=== PATIENT | female | born 1985 | race Caucasian/White ===

== ENCOUNTER 2019-06-29 22:08 | Emergency (ER) | payer BC ==
[~2019-06-29] VITALS: Ht 170.1 cm; Wt 86.2 kg
[~2019-06-29 22:08] MED LIST: ZYRTEC10 M1 PO
== END 2019-06-30 00:14 | disposition home or self-care (01) ==
LOC: ED 22:08
DX: S01.91XA Laceration without foreign body of unspecified part of head, initial encounter (principal); Z88.5 Allergy status to narcotic agent; Z79.899 Other long term (current) drug therapy; W22.8XXA Striking against or struck by other objects, initial encounter; Y93.89 Activity, other specified; Y92.89 Other specified places as the place of occurrence of the external cause; Y99.8 Other external cause status

== ENCOUNTER → 2020-05-15 | Outpatient (CLI) | payer BC | END | disposition home or self-care (01) | LOC: COVID19 12:11 | PROVIDERS: ATTEND Family Medicine | DX: U07.1 COVID-19 (principal) ==

== ENCOUNTER 2023-02-04 23:59 | Emergency (ER) | payer SELFPAY ==
[~2023-02-04] VITALS: Ht 167.6 cm; Wt 77.1 kg
[2023-02-05] VITALS (11 sets, daily range): BP systolic 90–141; BP diastolic 48–76
[2023-02-05 00:34] LABS: HEMATOCRIT 37.2 % (37.0-47.0); MEAN CORPUSCULAR HGB CONC 32.3 g/dl (33.0-37.0); MEAN PLATELET VOLUME 9.6 fl (9.6-12.3); PLATELET COUNT AUTOMATED 281 10*3/uL (130-400); WHITE BLOOD COUNT 9.9 10*3/uL (4.8-10.8)
[2023-02-05 00:35] LABS: MANUAL DIFF REFLEX YES
[2023-02-05 00:45] LABS: ACT PARTIAL THROMBO TIME 34.2 SECONDS (20.0-32.1); INTERNATIONAL NORM RATIO 1.1 (2.0-3.5)
[2023-02-05 00:47] LABS: ABG BASE EXCESS -15.2 mmol/L (-2.0-2.0); ARTERIAL BLOOD GAS PH 7.294 (7.35-7.45)
[2023-02-05 01:05] LABS: POTASSIUM 4.6 mmol/L (3.4-5.1); TOTAL PROTEIN 6.3 gm/dL (6.0-8.0)
[2023-02-05 01:13] LABS: ATYPICAL LYMPHS 1 % (0-0); PLATELET SUFFICIENCY NORMAL (NORMAL); TOTAL CELLS COUNTED 100 #CELLS
[2023-02-05 03:31] LABS: ARTERIAL BLOOD GAS PH 7.368 (7.35-7.45)
[2023-02-05 03:32] LABS: ABG BASE EXCESS -10.2 mmol/L (-2.0-2.0)
== END 2023-02-05 12:35 | disposition short-term general hospital (02) ==
LOC: ED 23:59 → EDHOLD 02-05 07:43 → ICCU 02-05 08:23 → ED 02-05 12:35
PROVIDERS: Internal Medicine
DX: R65.20 Severe sepsis without septic shock (principal); J96.90 Respiratory failure, unspecified, unspecified whether with hypoxia or hypercapnia; K81.0 Acute cholecystitis; E87.1 Hypo-osmolality and hyponatremia; J18.9 Pneumonia, unspecified organism; J96.00 Acute respiratory failure, unspecified whether with hypoxia or hypercapnia; Z88.5 Allergy status to narcotic agent; Z91.040 Latex allergy status; Z98.890 Other specified postprocedural states; Z20.822 Contact with and (suspected) exposure to COVID-19

== ENCOUNTER 2023-05-30 16:00 | Inpatient (IN) | payer BC ==
[~2023-05-30] VITALS: Ht 162.5 cm
[2023-05-30] VITALS (12 sets, daily range): BP systolic 74–114; BP diastolic 30–81
[2023-05-30] MEDS ORDERED: SODIUM CHLORIDE 0.9% 1,000 ML IV ONE ×2 (16:05)
[2023-05-30 16:31] LABS: MANUAL DIFF REFLEX YES; MEAN CORPUSCULAR HGB 25.9 pg (27.0-31.0); MEAN CORPUSCULAR HGB CONC 27.3 g/dl (33.0-37.0); MEAN PLATELET VOLUME 10.8 fl (9.6-12.3); PLATELET COUNT AUTOMATED 504 10*3/uL (130-400); RED BLOOD COUNT 4.63 10*6/uL (4.10-5.10); WHITE BLOOD COUNT 16.8 10*3/uL (4.8-10.8)
[2023-05-30 16:36] LABS: ABG BASE EXCESS -31.1 mmol/L (-2.0-2.0); ARTERIAL BLOOD GAS PH 6.796 (7.35-7.45)
[2023-05-30] MEDS ORDERED: SODIUM BICARBONATE 50 MEQ/50 ML VIAL IV ONE ×3 (16:40→19:15)
[2023-05-30] MEDS ORDERED: INSULIN REGULAR, HUMAN 1 UNIT/0.01 ML IV ONE (16:45)
[2023-05-30] MEDS ORDERED: INSULIN REGULAR IN 0.9 % NACL 100 ML IV SCH ×2 (16:45→18:40)
[2023-05-30 16:51] LABS: BASOPHILS 1 % (0-1); PLATELET SUFFICIENCY HIGH (NORMAL); TOTAL CELLS COUNTED 100 #CELLS
[2023-05-30 16:52] LABS: STOMATOCYTE FEW
[2023-05-30 16:53] LABS: ACANTHOCYTES FEW; POLYCHROMASIA SLIGHT
[2023-05-30] MEDS ORDERED: Piperacillin Sodium/Tazobact 50 ML IV ONE (17:55)
[2023-05-30 18:03] LABS: ALKALINE PHOSPHATASE 283 U/L (46-116); BUN 17 mg/dl (9-23); CHLORIDE 98 mmol/L (98-107); LIPASE 108 U/L (12-53); POTASSIUM 5.9 mmol/L (3.4-5.1); SGPT/ALT 101 U/L (5-49); TOTAL PROTEIN 5.9 gm/dL (6.0-8.0)
[2023-05-30] MEDS ORDERED: SODIUM CHLORIDE 0.9% 1,000 ML IV SCH ×2 (18:15→21:00)
[2023-05-30] MEDS ORDERED: ACETAMINOPHEN 325 MG TAB PO PRN (18:40)
[2023-05-30] MEDS ORDERED: Dicyclomine Hydrochloride 20 MG TAB PO PRN (18:40)
[2023-05-30] MEDS ORDERED: ACETAMINOPHEN 650 MG SUPP R PRN (18:40)
[2023-05-30] MEDS ORDERED: METHOCARBAMOL 750 MG TAB PO PRN (18:40)
[2023-05-30] MEDS ORDERED: TEMAZEPAM 15 MG CAP PO PRN (18:40)
[2023-05-30] MEDS ORDERED: BISACODYL 10 MG SUPP R PRN (18:40)
[2023-05-30] MEDS ORDERED: BISACODYL 5 MG TAB PO PRN (18:40)
[2023-05-30] MEDS ORDERED: Magnesium Hydroxide 30 ML UDC PO PRN (18:40)
[2023-05-30] MEDS ORDERED: Ondansetron Hydrochloride 4 MG/2 ML VIAL IV PRN (18:40)
[2023-05-30] MEDS ORDERED: SODIUM CHLORIDE 0.45% 1,000 ML IV SCH (18:50)
[2023-05-30] MEDS ORDERED: HEPARIN SODIUM 250 ML IV SCH (19:00)
[2023-05-30] MEDS ORDERED: MULTIVITAMIN CONCENTRATE (IV) 10 ML,Thiamine 100 MG,FOLIC ACID 1 MG in SODIUM CHLORIDE ... IV ONE (19:00)
[2023-05-30] MEDS ORDERED: POTASSIUM CHLORIDE IN WATER 100 ML IV SCH (19:00)
[2023-05-30] MEDS ORDERED: ASPIRIN 325 MG TAB PO ONE (19:00)
[2023-05-30 19:06] LABS: BILIRUBIN Negative (Negative); BLOOD Negative (Negative); CLARITY Clear (Clear); COLOR Yellow (Yellow); GLUCOSE 3+ (Negative); KETONE 1+ (Negative); LEUKO ESTERASE Negative (Negative); NITRITE Negative (Negative); SPECIFIC GRAVITY 1.025 (1.001-1.030)
[2023-05-30] MEDS ORDERED: DIAZEPAM 10 MG/2 ML SYR IV ONE (19:10)
[2023-05-30] MEDS ORDERED: NOREPINEPHRINE BITARTRATE/D5W 250 ML IV SCH (19:10)
[2023-05-30 19:18] LABS: BACTERIA TRACE; HYALINE CAST 21-30; RBC 0-2 rbc/hpf (0-2)
[2023-05-30] MEDS ORDERED: LORazepam 1 MG TAB PO SCH (20:00)
[2023-05-30] MEDS ORDERED: SYNTHROID,LEV125 MCG PO (21:06)
[2023-05-30] MEDS ORDERED: HUMALOG100 UNIT/1 SC (21:07)
[2023-05-30 21:33] LABS: POTASSIUM 4.1 mmol/L (3.4-5.1)
[2023-05-30] MEDS ORDERED: ATORVASTATIN CALCIUM 40 MG TABLET PO SCH (22:00)
[2023-05-30] MEDS ORDERED: AZITHROMYCIN 250 ML IV SCH (23:00)
[2023-05-31] VITALS (70 sets, daily range): BP systolic 88–133; BP diastolic 37–84
[2023-05-31] MEDS ORDERED: Ceftriaxone Sodium 2 GM in SYRINGE INFUSION 20 ML IV SCH
[2023-05-31 01:27] LABS: POTASSIUM 4.1 mmol/L (3.4-5.1)
[2023-05-31] MEDS ORDERED: DEXTROSE 5% SALINE 0.45% 1,000 ML IV SCH (02:05)
[2023-05-31 04:38] LABS: BASO % 0.2 % (0.0-1.0); EOS % 0.2 % (1.0-4.0); HEMATOCRIT 33.3 % (37.0-47.0); LYMPH # 1.5 10*3/uL (1.3-4.4); LYMPH % 13.1 % (27.0-41.0); MEAN CORPUSCULAR HGB 26.1 pg (27.0-31.0); MEAN CORPUSCULAR HGB CONC 31.2 g/dl (33.0-37.0); MEAN PLATELET VOLUME 9.5 fl (9.6-12.3); MONO # 0.5 10*3/uL (0.1-1.0); MONO % 4.5 % (3.0-9.0); NEUT # 9.2 10*3/uL (2.3-7.9); NEUT % 81.1 % (47.0-73.0); RED BLOOD COUNT 3.99 10*6/uL (4.10-5.10); RED CELL DISTRI WIDTH 21.6 % (0-14.5); WHITE BLOOD COUNT 11.4 10*3/uL (4.8-10.8)
[2023-05-31 04:46] LABS: MEAN CELL VOLUME 83.5 fl (81.0-99.0); PLATELET COUNT AUTOMATED 282 10*3/uL (130-400)
[2023-05-31 05:04] LABS: FREE T4 0.92 ng/dl (0.89-1.76); POTASSIUM 4.3 mmol/L (3.4-5.1); TOTAL PROTEIN 5.9 gm/dL (6.0-8.0)
[2023-05-31 05:39] LABS: VITAMIN D, 25-HYDROXY 22.3 ng/mL (30-100)
[2023-05-31] MEDS ORDERED: IOHEXOL 300 MG/ML 100 ML VIAL IV ONE (08:35)
[2023-05-31] MEDS ORDERED: SODIUM CHLORIDE 0.9% 50 ML BAG IV ONE (09:07)
[2023-05-31] MEDS ORDERED: Enoxaparin Sodium 30 MG/0.3 ML SYR SC SCH (10:00)
[2023-05-31] MEDS ORDERED: ASPIRIN ENTERIC COATED 81 MG TAB PO SCH (10:00)
[2023-05-31] MEDS ORDERED: Insulin Glargine, Recombinan 1 UNIT/0.01 ML SC ONE (10:00)
[2023-05-31] MEDS ORDERED: DEXTROSE 10 % IN WATER 250 ML IV PRN (11:40)
[2023-05-31 12:00] LABS: POTASSIUM 3.7 mmol/L (3.4-5.1)
[2023-05-31] MEDS ORDERED: SODIUM CHLORIDE 0.9% 1,000 ML IV SCH (12:30)
[2023-05-31] MEDS ORDERED: Ketorolac Tromethamine 15 MG/ML VIAL IV ONE (12:40)
[2023-05-31] MEDS ORDERED: METOPROLOL SUCCINATE XR 25 MG TAB PO SCH (13:35)
[2023-05-31] MEDS ORDERED: INSULIN LISPRO 1 UNIT/0.01 ML SQ SCH (16:30)
[2023-05-31] MEDS ORDERED: DEXMEDETOMIDINE IN 0.9 % NACL 100 ML IV SCH (20:30)
[2023-05-31] MEDS ORDERED: LORazepam 1 MG TAB PO SCH (22:00)
[2023-06-01] VITALS (20 sets, daily range): BP systolic 82–154; BP diastolic 44–93
[2023-06-01] MEDS ORDERED: LORazepam 1 MG TAB PO PRN
[2023-06-01] MEDS ORDERED: DIAZEPAM 10 MG/2 ML SYR IV PRN ×2 (00:35→15:46)
[2023-06-01 06:15] LABS: BASO % 0.3 % (0.0-1.0); EOS # 0.1 10*3/uL (0.0-0.4); EOS % 0.9 % (1.0-4.0); HEMATOCRIT 33.8 % (37.0-47.0); LYMPH # 1.9 10*3/uL (1.3-4.4); LYMPH % 24.5 % (27.0-41.0); MEAN CELL VOLUME 85.4 fl (81.0-99.0); MEAN CORPUSCULAR HGB 25.8 pg (27.0-31.0); MEAN CORPUSCULAR HGB CONC 30.2 g/dl (33.0-37.0); MONO # 0.4 10*3/uL (0.1-1.0); NEUT # 5.4 10*3/uL (2.3-7.9); NEUT % 68.7 % (47.0-73.0); NUCLEATED RED BLOOD CELL 0.3 % (0.0-0.0); PLATELET COUNT AUTOMATED 202 10*3/uL (130-400); RED BLOOD COUNT 3.96 10*6/uL (4.10-5.10); RED CELL DISTRI WIDTH 23.2 % (0-14.5); WHITE BLOOD COUNT 7.9 10*3/uL (4.8-10.8)
[2023-06-01 06:16] LABS: ALKALINE PHOSPHATASE 257 U/L (46-116); BUN 21 mg/dl (9-23); CHLORIDE 96 mmol/L (98-107); POTASSIUM 4.6 mmol/L (3.4-5.1); SGPT/ALT 110 U/L (5-49)
[2023-06-01] MEDS ORDERED: SODIUM CHLORIDE 0.9% 1,000 ML IV ONE (09:50)
[2023-06-01] MEDS ORDERED: DEXTROSE 5% SALINE 0.9% 1,000 ML IV SCH (12:35)
[2023-06-01 12:52] LABS: BUN 16 mg/dl (9-23); CHLORIDE 103 mmol/L (98-107)
[2023-06-01 13:00] LABS: POTASSIUM 3.5 mmol/L (3.4-5.1)
[2023-06-01 19:04] LABS: BUN 12 mg/dl (9-23); CHLORIDE 104 mmol/L (98-107); POTASSIUM 3.5 mmol/L (3.4-5.1)
[2023-06-02] VITALS (10 sets, daily range): BP systolic 104–185; BP diastolic 69–99
[2023-06-02 06:10] LABS: BUN 10 mg/dl (9-23); CHLORIDE 108 mmol/L (98-107); POTASSIUM 3.2 mmol/L (3.4-5.1)
[2023-06-02 06:11] LABS: BASO % 0.9 % (0.0-1.0); EOS # 0.2 10*3/uL (0.0-0.4); EOS % 3.5 % (1.0-4.0); HEMATOCRIT 33.5 % (37.0-47.0); LYMPH # 2.4 10*3/uL (1.3-4.4); LYMPH % 55.1 % (27.0-41.0); MEAN CORPUSCULAR HGB 25.7 pg (27.0-31.0); MEAN CORPUSCULAR HGB CONC 29.6 g/dl (33.0-37.0); MEAN PLATELET VOLUME 9.9 fl (9.6-12.3); MONO # 0.2 10*3/uL (0.1-1.0); MONO % 4.4 % (3.0-9.0); NEUT # 1.6 10*3/uL (2.3-7.9); NEUT % 35.9 % (47.0-73.0); PLATELET COUNT AUTOMATED 155 10*3/uL (130-400); RED BLOOD COUNT 3.85 10*6/uL (4.10-5.10); RED CELL DISTRI WIDTH 22.8 % (0-14.5); WHITE BLOOD COUNT 4.3 10*3/uL (4.8-10.8)
[2023-06-02] MEDS ORDERED: POTASSIUM CHLORIDE IN WATER 100 ML IV SCH (10:00)
[2023-06-02 13:06] LABS: BUN 7 mg/dl (9-23); CHLORIDE 107 mmol/L (98-107); POTASSIUM 3.9 mmol/L (3.4-5.1)
[2023-06-02] MEDS ORDERED: Enoxaparin Sodium 40 MG/0.4 ML SYR SC SCH (13:40)
[2023-06-02] MEDS ORDERED: DEXMEDETOMIDINE HCL 1,000 MCG in SODIUM CHLORIDE 0.9% 240 ML IV SCH (14:00)
[2023-06-02] MEDS ORDERED: DIAZEPAM 10 MG/2 ML SYR IV PRN (15:56)
[2023-06-02 18:53] LABS: BUN 9 mg/dl (9-23); CHLORIDE 106 mmol/L (98-107)
[2023-06-02] MEDS ORDERED: AMMONIUM LACTATE 12% LOTION T SCH (22:00)
[2023-06-03] VITALS (10 sets, daily range): BP systolic 99–171; BP diastolic 59–93
[2023-06-03 06:04] LABS: BASO % 0.8 % (0.0-1.0); EOS # 0.2 10*3/uL (0.0-0.4); EOS % 3.7 % (1.0-4.0); HEMATOCRIT 35.5 % (37.0-47.0); LYMPH # 1.9 10*3/uL (1.3-4.4); LYMPH % 37.3 % (27.0-41.0); MEAN CORPUSCULAR HGB CONC 31.8 g/dl (33.0-37.0); MEAN PLATELET VOLUME 9.9 fl (9.6-12.3); MONO # 0.3 10*3/uL (0.1-1.0); MONO % 6.4 % (3.0-9.0); NEUT # 2.7 10*3/uL (2.3-7.9); NEUT % 51.6 % (47.0-73.0); PLATELET COUNT AUTOMATED 163 10*3/uL (130-400); RED BLOOD COUNT 4.35 10*6/uL (4.10-5.10); RED CELL DISTRI WIDTH 23.1 % (0-14.5); WHITE BLOOD COUNT 5.2 10*3/uL (4.8-10.8)
[2023-06-03 06:12] LABS: CHLORIDE 103 mmol/L (98-107)
[2023-06-03 06:18] LABS: BUN < 5 mg/dl (9-23); POTASSIUM 2.9 mmol/L (3.4-5.1)
[2023-06-03 06:45] LABS: MEAN CELL VOLUME 81.6 fl (81.0-99.0)
[2023-06-03] MEDS ORDERED: POTASSIUM CHLORIDE IN WATER 100 ML IV SCH (07:00)
[2023-06-03] MEDS ORDERED: MAGNESIUM SULFATE 50 ML IV ONE (07:50)
[2023-06-03] MEDS ORDERED: DEXTROSE 10 % IN WATER 250 ML IV PRN (09:35)
[2023-06-03] MEDS ORDERED: Insulin Glargine, Recombinan 1 UNIT/0.01 ML SC SCH (10:00)
[2023-06-03] MEDS ORDERED: INSULIN LISPRO 1 UNIT/0.01 ML SQ SCH (11:30)
[2023-06-03 12:29] LABS: CHLORIDE 101 mmol/L (98-107); POTASSIUM 3.6 mmol/L (3.4-5.1)
[2023-06-03 12:31] LABS: BUN < 5 mg/dl (9-23)
[2023-06-04] VITALS (12 sets, daily range): BP systolic 114–165; BP diastolic 71–99
[2023-06-04] MEDS ORDERED: ZALEPLON5 MG PO (05:42)
[2023-06-04] MEDS ORDERED: Levothyroxine Sodium 125 MCG TAB PO SCH ×2 (06:00→10:00)
[2023-06-04 06:06] LABS: CHLORIDE 105 mmol/L (98-107); POTASSIUM 3.9 mmol/L (3.4-5.1)
[2023-06-04 06:12] LABS: BUN < 5 mg/dl (9-23)
[2023-06-04 06:17] LABS: BASO % 0.9 % (0.0-1.0); EOS # 0.3 10*3/uL (0.0-0.4); EOS % 5.6 % (1.0-4.0); HEMATOCRIT 35.8 % (37.0-47.0); LYMPH # 1.8 10*3/uL (1.3-4.4); LYMPH % 40.7 % (27.0-41.0); MEAN CELL VOLUME 84.6 fl (81.0-99.0); MEAN CORPUSCULAR HGB 25.8 pg (27.0-31.0); MEAN CORPUSCULAR HGB CONC 30.4 g/dl (33.0-37.0); MEAN PLATELET VOLUME 10.3 fl (9.6-12.3); MONO # 0.5 10*3/uL (0.1-1.0); MONO % 11.8 % (3.0-9.0); NEUT # 1.8 10*3/uL (2.3-7.9); NEUT % 40.6 % (47.0-73.0); PLATELET COUNT AUTOMATED 177 10*3/uL (130-400); RED BLOOD COUNT 4.23 10*6/uL (4.10-5.10); WHITE BLOOD COUNT 4.5 10*3/uL (4.8-10.8)
[2023-06-04] MEDS ORDERED: Technetium Tc 99M Tetrofosmi 0.23 MG KIT IJ SCH (13:05)
[2023-06-04] MEDS ORDERED: DIAZEPAM 10 MG/2 ML SYR IV ONE (23:55)
[2023-06-05] VITALS: BP 134/77
[2023-06-05 04:00] VITALS: BP 144/77
[2023-06-05 05:59] LABS: BASO # 0.1 10*3/uL (0.0-0.1); BASO % 1.2 % (0.0-1.0); EOS # 0.2 10*3/uL (0.0-0.4); EOS % 5.6 % (1.0-4.0); HEMATOCRIT 36.3 % (37.0-47.0); LYMPH # 1.9 10*3/uL (1.3-4.4); LYMPH % 46.6 % (27.0-41.0); MEAN CELL VOLUME 85.2 fl (81.0-99.0); MEAN CORPUSCULAR HGB 26.3 pg (27.0-31.0); MEAN CORPUSCULAR HGB CONC 30.9 g/dl (33.0-37.0); MEAN PLATELET VOLUME 10.1 fl (9.6-12.3); MONO # 0.5 10*3/uL (0.1-1.0); MONO % 12.6 % (3.0-9.0); NEUT # 1.4 10*3/uL (2.3-7.9); NEUT % 32.8 % (47.0-73.0); PLATELET COUNT AUTOMATED 222 10*3/uL (130-400); RED BLOOD COUNT 4.26 10*6/uL (4.10-5.10); RED CELL DISTRI WIDTH 24.1 % (0-14.5); WHITE BLOOD COUNT 4.1 10*3/uL (4.8-10.8)
[2023-06-05 06:00] VITALS: BP 127/74
[2023-06-05] MEDS ORDERED: Regadenoson 0.4 MG/5 ML SYR IV ONE (06:41)
[2023-06-05 06:59] LABS: BUN 6 mg/dl (9-23); CHLORIDE 105 mmol/L (98-107); POTASSIUM 3.3 mmol/L (3.4-5.1)
[2023-06-05] MEDS ORDERED: POTASSIUM CHLORIDE 20 MEQ TAB PO ONE ×2 (07:25→12:35)
[2023-06-05 08:00] VITALS: BP 127/73
[2023-06-05] MEDS ORDERED: Pantoprazole Sodium 20 MG TAB PO ONE (14:00)
[2023-06-05 16:00] VITALS: BP 141/87
[2023-06-05] MEDS ORDERED: TEMAZEPAM 15 MG CAP PO PRN (16:16)
[2023-06-05] MEDS ORDERED: hydrOXYzine pamoate 25 MG CAP PO ONE (19:00)
[2023-06-05 20:00] VITALS: BP 134/78
[2023-06-06] VITALS: BP 124/72
[2023-06-06] MEDS ORDERED: LORazepam 0.5 MG TAB PO ONE (01:00)
[2023-06-06 06:22] LABS: BASO # 0.1 10*3/uL (0.0-0.1); BASO % 1.5 % (0.0-1.0); EOS # 0.2 10*3/uL (0.0-0.4); EOS % 4.5 % (1.0-4.0); HEMATOCRIT 34.1 % (37.0-47.0); LYMPH # 2.1 10*3/uL (1.3-4.4); LYMPH % 38.7 % (27.0-41.0); MEAN CORPUSCULAR HGB 26.3 pg (27.0-31.0); MEAN CORPUSCULAR HGB CONC 30.2 g/dl (33.0-37.0); MEAN PLATELET VOLUME 9.8 fl (9.6-12.3); MONO # 0.9 10*3/uL (0.1-1.0); MONO % 16.2 % (3.0-9.0); NEUT # 2.1 10*3/uL (2.3-7.9); NEUT % 38.2 % (47.0-73.0); RED BLOOD COUNT 3.92 10*6/uL (4.10-5.10); WHITE BLOOD COUNT 5.4 10*3/uL (4.8-10.8)
[2023-06-06 06:23] LABS: PLATELET COUNT AUTOMATED 325 10*3/uL (130-400)
[2023-06-06 06:57] LABS: BUN 9 mg/dl (9-23); CHLORIDE 106 mmol/L (98-107)
[2023-06-06 07:04] LABS: POTASSIUM 4.6 mmol/L (3.4-5.1)
[2023-06-06 08:00] VITALS: BP 128/71
[2023-06-06] MEDS ORDERED: ATORVASTATIN CA40 M1 PO (11:32)
[2023-06-06] MEDS ORDERED: HUMALOG100 UNIT/1 SC (11:32)
[2023-06-06] MEDS ORDERED: LEVOFLOXACIN750 M2 PO (11:32)
[2023-06-06] MEDS ORDERED: HYDROXYZINE HCL25 MG PO (11:32)
[2023-06-06] MEDS ORDERED: SYNTHROID,LEV125 MCG PO (11:32)
[2023-06-06] MEDS ORDERED: METOPROLOL SUCC25 M2 PO (11:32)
[2023-06-06] MEDS ORDERED: ASPIRIN ADULT L81 M2 PO (11:32)
[2023-06-06 12:00] VITALS: BP 118/70
[2023-06-06] MEDS ORDERED: ADMELOG100 UNIT/1 SQ (12:39)
== END 2023-06-06 12:44 | disposition home or self-care (01) | DRG 871 ==
LOC: ED 16:00 → ICCU 18:29 → EDHOLD 18:29 → ICCU 20:36
PROVIDERS: Emergency Medicine; Student in an Organized Health Care Education/Training Program; ADMIT Internal Medicine; ATTEND Internal Medicine
PROC: 02HV33Z Insertion of Infusion Device into Superior Vena Cava, Percutaneous Approach (ICD-10-PCS; principal; 2023-05-30)
PROC: B548ZZA Ultrasonography of Superior Vena Cava, Guidance (ICD-10-PCS; 2023-05-30)
PROC: 4A02XM4 Measurement of Cardiac Total Activity, External Approach (ICD-10-PCS; 2023-06-05)
PROC: 3E073KZ Introduction of Other Diagnostic Substance into Coronary Artery, Percutaneous Approach (ICD-10-PCS; 2023-06-05)
DX: A41.9 Sepsis, unspecified organism (principal); E10.10 Type 1 diabetes mellitus with ketoacidosis without coma; G93.41 Metabolic encephalopathy; J18.9 Pneumonia, unspecified organism; I21.4 Non-ST elevation (NSTEMI) myocardial infarction; J96.01 Acute respiratory failure with hypoxia; E87.1 Hypo-osmolality and hyponatremia; N17.9 Acute kidney failure, unspecified; E87.5 Hyperkalemia; R65.20 Severe sepsis without septic shock; R16.0 Hepatomegaly, not elsewhere classified; K76.0 Fatty (change of) liver, not elsewhere classified; F10.20 Alcohol dependence, uncomplicated; E55.9 Vitamin D deficiency, unspecified; E03.9 Hypothyroidism, unspecified; R74.01 Elevation of levels of liver transaminase levels; E66.01 Morbid (severe) obesity due to excess calories; Z88.6 Allergy status to analgesic agent; Z68.29 Body mass index [BMI] 29.0-29.9, adult

== ENCOUNTER 2023-12-08 07:58 | Emergency (ER) | payer BC ==
[~2023-12-08] VITALS: Ht 170.1 cm; Wt 74.8 kg
[~2023-12-08 07:58] MED LIST changes: +ADMELOG100 UNIT/1 SQ; +ASPIRIN ADULT L81 M2 PO; +ATORVASTATIN CA40 M1 PO; +HUMALOG100 UNIT/1 SC; +HYDROXYZINE HCL25 MG PO; +LEVOFLOXACIN750 M2 PO; +METOPROLOL SUCC25 M2 PO; +SYNTHROID,LEV125 MCG PO; +ZALEPLON5 MG PO
[2023-12-08] MEDS ORDERED: fentaNYL CITRATE 100 MCG/2 ML VIAL IV ONE (08:35)
[2023-12-08] MEDS ORDERED: ETOMIDATE 20 MG/10 ML VIAL IV ONE (11:00)
[2023-12-08] MEDS ORDERED: TRAMADOL HCL50 MG PO (13:24)
[2023-12-11] MEDS ORDERED: CLONIDINE HCL0.1 M1 PO (14:41)
[2023-12-11] MEDS ORDERED: ZALEPLON10 MG PO (14:42)
[2023-12-11] MEDS ORDERED: XYWAV 0.50.5 GM/1 M PO (14:44)
[2023-12-11] MEDS ORDERED: HYDROXYZINE PAM50 MG PO (14:45)
[2023-12-11] MEDS ORDERED: BUSPIRONE10 MG PO (14:45)
[2023-12-11] MEDS ORDERED: OMEPRAZOLE MAGN20 MG PO (14:47)
[2023-12-11] MEDS ORDERED: CYMBALTA60 MG PO (14:47)
[2023-12-11] MEDS ORDERED: CYMBALTA30 MG PO (14:48)
[2023-12-15] MEDS ORDERED: HYDROCODONE-AC1 EAC1 PO (10:07)
[2023-12-21] MEDS ORDERED: HYDROXYZINE HCL25 MG PO (12:54)
[2023-12-21] MEDS ORDERED: MIRTAZAPINE45 MG PO (12:57)
[2023-12-21] MEDS ORDERED: KETOROLAC10 MG PO (13:06)
[2023-12-21] MEDS ORDERED: NOVOLOG10 ML SC (13:10)
[2023-12-25] MEDS ORDERED: AMOX-CLAV 875-1 EACH PO (14:05)
[2023-12-28] MEDS ORDERED: ATARAX,VISTARIL50 MG PO (01:51)
[2023-12-28] MEDS ORDERED: AMOX-CLAV 875-1 EACH PO (14:14)
== END 2023-12-08 14:41 | disposition home or self-care (01) ==
LOC: ED 07:58
DX: S52.531A Colles' fracture of right radius, initial encounter for closed fracture (principal); E11.9 Type 2 diabetes mellitus without complications; F10.20 Alcohol dependence, uncomplicated; Z88.5 Allergy status to narcotic agent; Z91.010 Allergy to peanuts; Z98.890 Other specified postprocedural states; W01.198A Fall on same level from slipping, tripping and stumbling with subsequent striking against other object, initial encounter; Y93.89 Activity, other specified; Y92.000 Kitchen of unspecified non-institutional (private) residence as the place of occurrence of the external cause; Y99.8 Other external cause status

== ENCOUNTER → 2023-12-15 | Day surgery (SDC) | payer BC ==
[~2023-12-15] VITALS: Ht 170.1 cm; Wt 74.8 kg
[~2023-12-15] MED LIST changes: +ACETAMINOPHEN 100 ML IV ONE; +AMOX-CLAV 875-1 EACH PO; +ATARAX,VISTARIL50 MG PO; +BUPIVACAINE 0.5% 10 ML VIAL ONE; +BUSPIRONE10 MG PO; +CLONIDINE HCL0.1 M1 PO; +CYMBALTA30 MG PO; +CYMBALTA60 MG PO; +HYDROCODONE-AC1 EAC1 PO; +HYDROXYZINE PAM50 MG PO; +HYDROmorphONE Hydrochloride 1 MG/ML SYR IV ONE; +HYDROmorphONE Hydrochloride 1 ML IV ONE; +KETOROLAC10 MG PO; +Ketorolac Tromethamine 30 MG/ML VIAL IV ONE; +Lactated Ringer's Solution 1,000 ML IV ONE; +Lidocaine Hydrochloride 5 ML VIAL IV ONE; +MIRTAZAPINE45 MG PO; +Midazolam Hydrochloride 2 MG/2 ML VIAL IV ONE; +NOVOLOG10 ML SC; +OMEPRAZOLE MAGN20 MG PO; +Ondansetron Hydrochloride 4 MG/2 ML VIAL IV ONE; +PROPOFOL 200 MG/20 ML VIAL IV ONE; +SEVOFLURANE 250 ML BOT INH ONE; +SODIUM CHLORIDE 0.9% 1,000 ML IV ONE; +TRAMADOL HCL50 MG PO; +XYWAV 0.50.5 GM/1 M PO; +ZALEPLON10 MG PO; +ceFAZolin sodium/sodium chlor 20 ML IV ONE; +fentaNYL CITRATE 100 MCG/2 ML VIAL IV ONE; +fentaNYL CITRATE/PF 50 MCG/ML SYRINGE IV ONE; +fentaNYL CITRATE/PF 50 MCG/ML SYRINGE ONE
[2023-12-15 06:30] VITALS: BP 131/82
[2023-12-15 08:23] LABS: BUN 9 mg/dl (9-23); CHLORIDE 101 mmol/L (98-107); POTASSIUM 4.6 mmol/L (3.4-5.1)
[2023-12-15 09:53] VITALS: BP 133/77
[2023-12-15 10:05] VITALS: BP 130/72
[2023-12-15 11:29] VITALS: BP 143/78
[2023-12-15 11:54] VITALS: BP 140/77
== END | disposition home or self-care (01) ==
LOC: SDC 12-11 14:00
PROVIDERS: ATTEND Orthopaedic Surgery
DX: S52.551A Other extraarticular fracture of lower end of right radius, initial encounter for closed fracture (principal); E10.9 Type 1 diabetes mellitus without complications; K21.9 Gastro-esophageal reflux disease without esophagitis; E03.9 Hypothyroidism, unspecified; E78.00 Pure hypercholesterolemia, unspecified; G43.909 Migraine, unspecified, not intractable, without status migrainosus; J45.909 Unspecified asthma, uncomplicated; Z96.41 Presence of insulin pump (external) (internal); Z98.891 History of uterine scar from previous surgery; Z98.84 Bariatric surgery status; Z88.5 Allergy status to narcotic agent; Z88.8 Allergy status to other drugs, medicaments and biological substances; Z79.890 Hormone replacement therapy; Z79.4 Long term (current) use of insulin; Z79.899 Other long term (current) drug therapy; Z98.890 Other specified postprocedural states; X58.XXXA Exposure to other specified factors, initial encounter; Y93.89 Activity, other specified; Y92.89 Other specified places as the place of occurrence of the external cause; Y99.8 Other external cause status

== ENCOUNTER → 2023-12-30 | Outpatient (CLI) | payer BC ==
[~2023-12-30] MED LIST changes: -ACETAMINOPHEN 100 ML IV ONE; -BUPIVACAINE 0.5% 10 ML VIAL ONE; -HYDROmorphONE Hydrochloride 1 MG/ML SYR IV ONE; -HYDROmorphONE Hydrochloride 1 ML IV ONE; -Ketorolac Tromethamine 30 MG/ML VIAL IV ONE; -Lactated Ringer's Solution 1,000 ML IV ONE; -Lidocaine Hydrochloride 5 ML VIAL IV ONE; -Midazolam Hydrochloride 2 MG/2 ML VIAL IV ONE; -Ondansetron Hydrochloride 4 MG/2 ML VIAL IV ONE; -PROPOFOL 200 MG/20 ML VIAL IV ONE; -SEVOFLURANE 250 ML BOT INH ONE; -SODIUM CHLORIDE 0.9% 1,000 ML IV ONE; -ceFAZolin sodium/sodium chlor 20 ML IV ONE; -fentaNYL CITRATE 100 MCG/2 ML VIAL IV ONE; -fentaNYL CITRATE/PF 50 MCG/ML SYRINGE IV ONE; -fentaNYL CITRATE/PF 50 MCG/ML SYRINGE ONE
== END | disposition home or self-care (01) ==
LOC: ORTHO 00:52
PROVIDERS: ATTEND Orthopaedic Surgery
DX: S52.531D Colles' fracture of right radius, subsequent encounter for closed fracture with routine healing (principal); X58.XXXD Exposure to other specified factors, subsequent encounter

== ENCOUNTER → 2024-01-29 | Outpatient (CLI) | payer BC | END | disposition home or self-care (01) | LOC: ORTHO 01:54 | PROVIDERS: ATTEND Orthopaedic Surgery | DX: S52.531D Colles' fracture of right radius, subsequent encounter for closed fracture with routine healing (principal); X58.XXXD Exposure to other specified factors, subsequent encounter ==

== ENCOUNTER 2024-09-08 07:33 | Emergency (ER) | payer BC ==
[~2024-09-08] VITALS: Ht 170.1 cm; Wt 70.3 kg
[2024-09-08] MEDS ORDERED: Acetaminophen/Oxycodone 5 MG/325 MG TABLET PO ONE (07:40)
[2024-09-08] MEDS ORDERED: MELOXICAM15 MG PO (07:49)
[2024-09-08] MEDS ORDERED: PERCOCET 5-3251 EACH PO (07:56)
== END 2024-09-08 08:15 | disposition home or self-care (01) ==
LOC: ED 07:33
DX: S52.502A Unspecified fracture of the lower end of left radius, initial encounter for closed fracture (principal); S52.612A Displaced fracture of left ulna styloid process, initial encounter for closed fracture; E78.00 Pure hypercholesterolemia, unspecified; G43.909 Migraine, unspecified, not intractable, without status migrainosus; E03.9 Hypothyroidism, unspecified; F41.9 Anxiety disorder, unspecified; E10.9 Type 1 diabetes mellitus without complications; Z79.4 Long term (current) use of insulin; Z79.899 Other long term (current) drug therapy; Z88.5 Allergy status to narcotic agent; Z98.890 Other specified postprocedural states; X58.XXXA Exposure to other specified factors, initial encounter; Y93.89 Activity, other specified; Y92.89 Other specified places as the place of occurrence of the external cause; Y99.8 Other external cause status

== ENCOUNTER → 2024-09-13 | Day surgery (SDC) | payer BC ==
[2024-09-12 10:47] LABS: BUN 12 mg/dl (9-23); CHLORIDE 95 mmol/L (98-107); POTASSIUM 4.7 mmol/L (3.4-5.1)
[~2024-09-13] VITALS: Ht 170.1 cm; Wt 71.2 kg
[~2024-09-13] MED LIST changes: +'CLONIDINE0.1 MG PO; +Dexamethasone Sodium Phospha 4 MG/ML VIAL IV ONE; +Ketamine Hydrochloride 50 MG/5 ML SYRINGE IV ONE; +Lactated Ringer's Solution 1,000 ML IV ONE; +MELOXICAM15 MG PO; +Midazolam Hydrochloride 2 MG/2 ML VIAL IV ONE; +Ondansetron Hydrochloride 4 MG/2 ML VIAL IV ONE; +PERCOCET 5-3251 EACH PO; +PROPOFOL 200 MG/20 ML VIAL IV ONE; +Ropivacaine Hydrochloride 5 MG/ML 20 ML AMP IJ ONE; +ceFAZolin sodium/sodium chlor 20 ML IV ONE
[2024-09-13 10:15] VITALS: BP 116/56
[2024-09-13 14:21] VITALS: BP 121/64
[2024-09-13 14:36] VITALS: BP 114/46
[2024-09-13 14:51] VITALS: BP 116/56
[2024-09-13 15:06] VITALS: BP 125/57
[2024-09-13 15:19] VITALS: BP 125/62
== END | disposition home or self-care (01) ==
LOC: SDC 09-12 12:30
PROVIDERS: ATTEND Orthopaedic Surgery
DX: S52.572A Other intraarticular fracture of lower end of left radius, initial encounter for closed fracture (principal); E03.9 Hypothyroidism, unspecified; G43.909 Migraine, unspecified, not intractable, without status migrainosus; E11.9 Type 2 diabetes mellitus without complications; K21.9 Gastro-esophageal reflux disease without esophagitis; F32.A Depression, unspecified; G89.18 Other acute postprocedural pain; Z98.891 History of uterine scar from previous surgery; Z98.84 Bariatric surgery status; Z98.890 Other specified postprocedural states; Z88.5 Allergy status to narcotic agent; Z79.890 Hormone replacement therapy; Z79.899 Other long term (current) drug therapy; Z83.3 Family history of diabetes mellitus; X58.XXXA Exposure to other specified factors, initial encounter; Y93.89 Activity, other specified; Y92.89 Other specified places as the place of occurrence of the external cause; Y99.8 Other external cause status

== ENCOUNTER → 2024-09-28 | Outpatient (CLI) | payer BC ==
[~2024-09-28] MED LIST changes: -Dexamethasone Sodium Phospha 4 MG/ML VIAL IV ONE; -Ketamine Hydrochloride 50 MG/5 ML SYRINGE IV ONE; -Lactated Ringer's Solution 1,000 ML IV ONE; -Midazolam Hydrochloride 2 MG/2 ML VIAL IV ONE; -Ondansetron Hydrochloride 4 MG/2 ML VIAL IV ONE; -PROPOFOL 200 MG/20 ML VIAL IV ONE; -Ropivacaine Hydrochloride 5 MG/ML 20 ML AMP IJ ONE; -ceFAZolin sodium/sodium chlor 20 ML IV ONE
== END | disposition home or self-care (01) ==
LOC: ORTHO 01:11
PROVIDERS: ATTEND Orthopaedic Surgery
DX: S52.612D Displaced fracture of left ulna styloid process, subsequent encounter for closed fracture with routine healing (principal); S52.572D Other intraarticular fracture of lower end of left radius, subsequent encounter for closed fracture with routine healing; X58.XXXD Exposure to other specified factors, subsequent encounter

== ENCOUNTER → 2024-10-26 | Outpatient (CLI) | payer BC | END | disposition home or self-care (01) | LOC: ORTHO 02:24 | PROVIDERS: ATTEND Orthopaedic Surgery | DX: S52.572D Other intraarticular fracture of lower end of left radius, subsequent encounter for closed fracture with routine healing (principal); Z98.890 Other specified postprocedural states; X58.XXXD Exposure to other specified factors, subsequent encounter ==

== ENCOUNTER → 2024-11-07 | Outpatient (CLI) | payer BC ==
[~2024-11-07] MED LIST changes: +COLACE 2-IN-11 EACH PO; +IRON325 M3 PO
== END | disposition home or self-care (01) ==
LOC: RAD 09:09
PROVIDERS: ATTEND Orthopaedic Surgery
DX: S52.612A Displaced fracture of left ulna styloid process, initial encounter for closed fracture (principal); M81.0 Age-related osteoporosis without current pathological fracture; X58.XXXA Exposure to other specified factors, initial encounter; Y93.89 Activity, other specified; Y92.89 Other specified places as the place of occurrence of the external cause; Y99.8 Other external cause status

== ENCOUNTER 2024-11-08 09:25 | Emergency (ER) | payer BC ==
[~2024-11-08] VITALS: Ht 170.1 cm; Wt 68.0 kg
[~2024-11-08 09:25] MED LIST changes: -COLACE 2-IN-11 EACH PO; -IRON325 M3 PO
[2024-11-08] MEDS ORDERED: SODIUM CHLORIDE 0.9% 1,000 ML IV ONE ×2 (09:40)
[2024-11-08 09:58] LABS: BASO # 0.1 10*3/uL (0.0-0.1); BASO % 1.1 % (0.0-1.0); EOS # 0.1 10*3/uL (0.0-0.4); EOS % 1.6 % (1.0-4.0); MEAN CELL VOLUME 59.5 fl (81.0-99.0); MEAN CORPUSCULAR HGB 16.2 pg (27.0-31.0); MEAN PLATELET VOLUME 8.7 fl (9.6-12.3); MONO # 0.4 10*3/uL (0.1-1.0); MONO % 4.7 % (3.0-9.0); NEUT # 4.7 10*3/uL (2.3-7.9); NEUT % 61.4 % (47.0-73.0); NUCLEATED RED BLOOD CELL 0.0 % (0.0-0.0); NUCLEATED RED BLOOD CELL 0.0 10*3/uL (0.0-0.0); PLATELET COUNT AUTOMATED 356 10*3/uL (130-400); RED CELL DISTRI WIDTH 18.5 % (0-14.5)
[2024-11-08 10:02] LABS: VENOUS BLOOD GAS O2 SAT 80.5 % (60.0-85.0)
[2024-11-08 10:10] LABS: BUN 17 mg/dl (9-23)
[2024-11-08] MEDS ORDERED: COLACE 2-IN-11 EACH PO (10:28)
[2024-11-08] MEDS ORDERED: IRON325 M3 PO (10:28)
== END 2024-11-08 11:51 | disposition home or self-care (01) ==
LOC: ED 09:25
PROVIDERS: Emergency Medicine
DX: E10.65 Type 1 diabetes mellitus with hyperglycemia (principal); I10 Essential (primary) hypertension; E78.5 Hyperlipidemia, unspecified; Z88.5 Allergy status to narcotic agent; Z79.899 Other long term (current) drug therapy; Z79.4 Long term (current) use of insulin; Z98.890 Other specified postprocedural states; Z98.84 Bariatric surgery status

== ENCOUNTER → 2024-11-25 | Outpatient (CLI) | payer BC ==
[~2024-11-25] MED LIST changes: +COLACE 2-IN-11 EACH PO; +IRON325 M3 PO
== END ==
LOC: ORTHO 02:30
PROVIDERS: ATTEND Orthopaedic Surgery
DX: S52.532D Colles' fracture of left radius, subsequent encounter for closed fracture with routine healing (principal); X58.XXXD Exposure to other specified factors, subsequent encounter

== ENCOUNTER → 2024-12-14 | Outpatient (CLI) | payer BC | LOC: ORTHO 08:05 | PROVIDERS: ATTEND Orthopaedic Surgery | DX: S52.532D Colles' fracture of left radius, subsequent encounter for closed fracture with routine healing (principal); M79.89 Other specified soft tissue disorders; X58.XXXD Exposure to other specified factors, subsequent encounter ==

== ENCOUNTER → 2024-12-22 | Day surgery (SDC) | payer BC ==
[2024-12-20 13:04] LABS: BUN 11 mg/dl (9-23)
[~2024-12-22] VITALS: Ht 170.1 cm; Wt 70.3 kg
[~2024-12-22] MED LIST changes: +Dexamethasone Sodium Phospha 4 MG/ML VIAL IV ONE; +EPINEPHrine/Lidocaine Hydroc 20 ML VIAL ONE; +Ketamine Hydrochloride 50 MG/5 ML SYRINGE IV ONE; +Lactated Ringer's Solution 1,000 ML IV ONE; +MAGNESIUM SULFATE 1 GM/2 ML VIAL IV ONE; +Midazolam Hydrochloride 2 MG/2 ML VIAL IV ONE; +Ondansetron Hydrochloride 4 MG/2 ML VIAL IV ONE; +PROPOFOL 200 MG/20 ML VIAL IV ONE; +Ropivacaine Hydrochloride 5 MG/ML 20 ML AMP IJ ONE; +SEVOFLURANE 250 ML BOT INH ONE; +ceFAZolin sodium/sodium chlor 20 ML IV ONE
[2024-12-22 09:02] VITALS: BP 110/67
[2024-12-22 09:05] VITALS: BP 116/67
[2024-12-22 09:17] VITALS: BP 131/74
[2024-12-22 09:32] VITALS: BP 130/78
[2024-12-22 09:47] VITALS: BP 132/75
== END | disposition home or self-care (01) ==
LOC: SDC 12-20 08:00
PROVIDERS: ATTEND Orthopaedic Surgery
DX: T84.84XA Pain due to internal orthopedic prosthetic devices, implants and grafts, initial encounter (principal); F32.A Depression, unspecified; E11.9 Type 2 diabetes mellitus without complications; E03.9 Hypothyroidism, unspecified; I10 Essential (primary) hypertension; E78.00 Pure hypercholesterolemia, unspecified; F41.9 Anxiety disorder, unspecified; K21.9 Gastro-esophageal reflux disease without esophagitis; Z95.1 Presence of aortocoronary bypass graft; Z98.891 History of uterine scar from previous surgery; Z88.4 Allergy status to anesthetic agent; Z88.2 Allergy status to sulfonamides; Z98.890 Other specified postprocedural states; Z79.899 Other long term (current) drug therapy; Y79.8 Miscellaneous orthopedic devices associated with adverse incidents, not elsewhere classified; Y92.89 Other specified places as the place of occurrence of the external cause

== ENCOUNTER → 2025-01-06 | Outpatient (CLI) | payer BC ==
[~2025-01-06] MED LIST changes: -Dexamethasone Sodium Phospha 4 MG/ML VIAL IV ONE; -EPINEPHrine/Lidocaine Hydroc 20 ML VIAL ONE; -Ketamine Hydrochloride 50 MG/5 ML SYRINGE IV ONE; -Lactated Ringer's Solution 1,000 ML IV ONE; -MAGNESIUM SULFATE 1 GM/2 ML VIAL IV ONE; -Midazolam Hydrochloride 2 MG/2 ML VIAL IV ONE; -Ondansetron Hydrochloride 4 MG/2 ML VIAL IV ONE; -PROPOFOL 200 MG/20 ML VIAL IV ONE; -Ropivacaine Hydrochloride 5 MG/ML 20 ML AMP IJ ONE; -SEVOFLURANE 250 ML BOT INH ONE; -ceFAZolin sodium/sodium chlor 20 ML IV ONE
== END | disposition home or self-care (01) ==
LOC: ORTHO 00:13
PROVIDERS: ATTEND Orthopaedic Surgery
DX: M19.032 Primary osteoarthritis, left wrist (principal); M25.532 Pain in left wrist

== ENCOUNTER → 2025-02-06 | Outpatient (CLI) | payer BC | END | disposition home or self-care (01) | LOC: MRI 13:20 | PROVIDERS: ATTEND Orthopaedic Surgery | DX: S52.612D Displaced fracture of left ulna styloid process, subsequent encounter for closed fracture with routine healing (principal); S52.532D Colles' fracture of left radius, subsequent encounter for closed fracture with routine healing; M65.88 Other synovitis and tenosynovitis, other site; R93.7 Abnormal findings on diagnostic imaging of other parts of musculoskeletal system; X58.XXXD Exposure to other specified factors, subsequent encounter ==

== ENCOUNTER → 2025-03-06 | Outpatient (CLI) | payer BC | END | disposition home or self-care (01) | LOC: ORTHO 07:42 | PROVIDERS: ATTEND Orthopaedic Surgery | DX: S52.531D Colles' fracture of right radius, subsequent encounter for closed fracture with routine healing (principal); M19.032 Primary osteoarthritis, left wrist; X58.XXXD Exposure to other specified factors, subsequent encounter ==

== ENCOUNTER → 2025-04-03 | Outpatient (CLI) | payer BC | END | disposition home or self-care (01) | LOC: ORTHO 05:42 | PROVIDERS: ATTEND Orthopaedic Surgery | DX: S52.531D Colles' fracture of right radius, subsequent encounter for closed fracture with routine healing (principal); M19.032 Primary osteoarthritis, left wrist; X58.XXXD Exposure to other specified factors, subsequent encounter ==